=== PATIENT | male | born 1990 | race Caucasian/White ===

== ENCOUNTER 2018-08-13 14:08 | Inpatient (IN) | payer SELFPAY ==
[~2018-08-13] VITALS: Ht 172.7 cm; Wt 93.0 kg
[2018-08-13] MEDS ORDERED: SODIUM CHLORIDE 0.9% 1,000 ML IV ONE ×2 (15:03→15:15)
[2018-08-13 15:58] LABS: HEMATOCRIT. 50.3 % (42.0-52.0); HEMOGLOBIN. 16.3 g/dL (14.0-18.0); MEAN CORPUSCULAR HEMOGLOBIN 32.7 pg (28.0-32.0); MEAN CORPUSCULAR VOLUME 100.9 fL (80.0-94.0); MEAN PLATELET VOLUME 8.1 fl (7.4-10.4); PLATELET 417 x1000/uL (130-400); RED BLOOD CELL COUNT 4.99 mill/uL (4.7-6.1); RED CELL DISTRIBUTION WIDTH 12.8 % (11.6-14.6)
[2018-08-13 16:05] LABS: INR 1.1; PROTHROMBIN TIME 11.4 sec (9.1-11.1)
[2018-08-13 16:06] LABS: BG BASE EXCESS -29.8 mmol/L (-2.0-2.0); BG CARBOXYHEMOGLOBIN 0.7 % (0.5-1.5); BG DEOXYHEMOGLOBIN 1.1 % (0.0-5.0); BG FRACTION INSPIRED OXYGEN 21; BG HCO3 ACT 2.2 mmol/L (22.0-26.0); BG METHEMOGLOBIN 0.5 % (0.0-1.5); BG OXYGEN SATURATION 98.9 % (92.0-98.5); BG OXYHEMOGLOBIN 97.7 % (94.0-97.0); BG PCO2 11.8 mmHg (35.0-45.0); BG PH 6.882 (7.350-7.450); BG SAMPLE SITE LEFT BRACHIAL; BG TOTAL HEMOGLOBIN 14.9 g/dL (12.0-18.0); BG VENT MODE ROOM AIR
[2018-08-13 16:07] LABS: CHLORIDE 91 mEq/L (98-107)
[2018-08-13] MEDS ORDERED: INSULIN REGULAR (DRIP) 100 UNITS in SODIUM CHLORIDE 0.9% 100 ML IV STA (16:14)
[2018-08-13] MEDS ORDERED: SODIUM CHLORIDE 0.9% 1,000 ML IV STA (16:14)
[2018-08-13 16:15] LABS: BETA HYDROXYBUTYRATE 9.3 mMol/L (0.0-0.3)
[2018-08-13 16:18] LABS: PLATELET ESTIMATE INCREASED
[2018-08-13] MEDS ORDERED: LORAZEPAM 0.5MG TABLET PO PRN (16:45)
[2018-08-13] MEDS ORDERED: DEXTROSE 50% WATER 50ML SYRINGE IV PRN ×2 (16:45)
[2018-08-13] MEDS: BLOOD SUGAR DIAGNOSTIC STRIP TEST SCH (16:45)
[2018-08-13] MEDS ORDERED: HYDROMORPHONE HCL/PF 2MG/ML CPJ IV PRN (16:45)
[2018-08-13] MEDS ORDERED: MAGNESIUM/ALUMINUM HYDROXIDE/SIMETHICONE 30ML UDC PO PRN (16:45)
[2018-08-13] MEDS ORDERED: ONDANSETRON HCL 4MG/2ML INJ IV PRN (16:45)
[2018-08-13 17:36] LABS: PHOSPHORUS 7.6 mg/dL (2.5-4.9)
[2018-08-13 17:59] LABS: CLARITY URINE CLEAR (CLEAR); COLOR URINE YELLOW (YELLOW); KETONES URINE 3+ (NEGATIVE); LEUKOCYTE ESTERASE URINE NEGATIVE (NEGATIVE); NITRITE URINE NEGATIVE (NEGATIVE); OCCULT BLOOD URINE 1+ (NEGATIVE); PROTEIN URINE 2+ (NEGATIVE); SPECIFIC GRAVITY URINE 1.023 (1.005-1.030); UROBILINOGEN URINE 0.2 E.U./dL (0.2-1.0)
[2018-08-13 18:18] LABS: *AMPHETAMINES SCREEN URINE NEGATIVE (NEGATIVE); *BARBITURATES SCREEN URINE NEGATIVE (NEGATIVE); *BENZODIAZEPINES SCREEN URINE NEGATIVE (NEGATIVE); *COCAINE SCREEN URINE NEGATIVE (NEGATIVE); METHADONE URINE SCREEN NEGATIVE (NEGATIVE); OPIATES URINE SCREEN NEGATIVE (NEGATIVE); PHENCYCLIDINE URINE SCREEN NEGATIVE (NEGATIVE)
[2018-08-13 18:19] LABS: CANNABINOID URINE SCREEN NEGATIVE (NEGATIVE)
[2018-08-13 19:08] LABS: CHLORIDE 107 mEq/L (98-107)
[2018-08-13 20:39] LABS: CHLORIDE 110 mEq/L (98-107)
[2018-08-13 22:00] VITALS: BP 121/68
[2018-08-13] MEDS: ENOXAPARIN 40MG/0.4ML SYR SUBCUT SCH (22:00)
[2018-08-13 22:11] VITALS: BP 121/68
[2018-08-13 22:16] LABS: CHLORIDE 113 mEq/L (98-107)
[2018-08-13 22:30] VITALS: BP 117/78
[2018-08-13 23:00] VITALS: BP 109/85
[2018-08-13] MEDS: SODIUM CHLORIDE 0.9% 1,000 ML IV SCH (23:11)
[2018-08-13 23:30] VITALS: BP 116/65
[2018-08-13 23:49] LABS: HEPATITIS B SURFACE ANTIGEN NEGATIVE
[2018-08-14] VITALS (62 sets, daily range): BP systolic 85–157; BP diastolic 33–95
[2018-08-14] MEDS ORDERED: KCL 20MEQ/100ML PREMIX 100 ML IV NR
[2018-08-14] MEDS ORDERED: VANCOMYCIN 1500MG in DEXTROSE 5% WATER 250ML IV NR ×2
[2018-08-14 00:18] LABS: HEPATITIS A AB IGM NEGATIVE (NEGATIVE)
[2018-08-14] MEDS: INSULIN REGULAR (DRIP) 100 UNITS in SODIUM CHLORIDE 0.9% 100 ML IV SCH ×4 (00:34→20:49)
[2018-08-14 01:09] LABS: CHLORIDE 118 mEq/L (98-107)
[2018-08-14] MEDS: SODIUM CHLORIDE 0.9% 1,000 ML IV SCH ×2 (05:06→05:40)
[2018-08-14] MEDS ORDERED: VANCOMYCIN 1 G PREMIX 200 ML IV SCH (07:00)
[2018-08-14 07:20] LABS: HEMATOCRIT. 44.1 % (42.0-52.0); HEMOGLOBIN. 15.2 g/dL (14.0-18.0); MEAN CORPUSCULAR HEMOGLOBIN 32.4 pg (28.0-32.0); MEAN CORPUSCULAR VOLUME 93.8 fL (80.0-94.0); MEAN PLATELET VOLUME 7.8 fl (7.4-10.4); PLATELET 236 x1000/uL (130-400); RED CELL DISTRIBUTION WIDTH 12.4 % (11.6-14.6)
[2018-08-14] MEDS: BLOOD SUGAR DIAGNOSTIC STRIP TEST SCH ×16 (08:29→23:45)
[2018-08-14 08:43] LABS: CHLORIDE 122 mEq/L (98-107)
[2018-08-14 08:59] LABS: PHOSPHORUS 0.2 mg/dL (2.5-4.9)
[2018-08-14] MEDS ORDERED: SODIUM CHLORIDE 0.9% 1,000 ML IV SCH (09:06)
[2018-08-14 09:12] LABS: BG BASE EXCESS -20.8 mmol/L (-2.0-2.0); BG CARBOXYHEMOGLOBIN 0.7 % (0.5-1.5); BG DEOXYHEMOGLOBIN 0.6 % (0.0-5.0); BG FRACTION INSPIRED OXYGEN 100; BG HCO3 ACT 11.8 mmol/L (22.0-26.0); BG METHEMOGLOBIN 0.2 % (0.0-1.5); BG OXYGEN SATURATION 99.4 % (92.0-98.5); BG OXYHEMOGLOBIN 98.5 % (94.0-97.0); BG PCO2 55.7 mmHg (35.0-45.0); BG PH 6.943 (7.350-7.450); BG PO2 305.4 mmHg (75.0-100.0); BG SAMPLE SITE RIGHT RADIAL; BG TOTAL HEMOGLOBIN 14.8 g/dL (12.0-18.0); BG VENT MODE MASK - NRB
[2018-08-14] MEDS ORDERED: POTASSIUM CHLORIDE 20MEQ/PACKET PO ONE (09:15)
[2018-08-14] MEDS ORDERED: POTASSIUM CHLORIDE INJ 40 MEQ in DEXT 5% WATER 250 ML IV SCH (09:30)
[2018-08-14 09:33] LABS: HEMATOCRIT. 42.8 % (42.0-52.0); HEMOGLOBIN. 15.1 g/dL (14.0-18.0); MEAN CORPUSCULAR HEMOGLOBIN 32.5 pg (28.0-32.0); MEAN CORPUSCULAR VOLUME 92.3 fL (80.0-94.0); MEAN PLATELET VOLUME 7.5 fl (7.4-10.4); PLATELET 234 x1000/uL (130-400); RED BLOOD CELL COUNT 4.64 mill/uL (4.7-6.1); RED CELL DISTRIBUTION WIDTH 12.4 % (11.6-14.6)
[2018-08-14 09:46] LABS: PLATELET ESTIMATE NORMAL
[2018-08-14 09:55] LABS: PLATELET ESTIMATE NORMAL
[2018-08-14] MEDS ORDERED: POTASSIUM PHOS,M-BASIC-D-BASIC 20 MMOL in DEXT 5% WATER 243.3333 ML IV SCH (10:00)
[2018-08-14] MEDS: POTASSIUM CHLORIDE 20MEQ/PACKET PO SCH ×4 (12:18→20:22)
[2018-08-14] MEDS ORDERED: POTASSIUM CHLORIDE 20MEQ/PACKET PO SCH (13:00)
[2018-08-14 15:01] LABS: PHOSPHORUS 0.4 mg/dL (2.5-4.9)
[2018-08-14] MEDS: DEXT 5%/0.45% NACL 1000ML 1,000 ML IV SCH (15:56)
[2018-08-14 17:23] LABS: BG CARBOXYHEMOGLOBIN 0.8 % (0.5-1.5); BG DEOXYHEMOGLOBIN 2.4 % (0.0-5.0); BG FRACTION INSPIRED OXYGEN 30; BG HCO3 ACT 6.8 mmol/L (22.0-26.0); BG METHEMOGLOBIN 0.5 % (0.0-1.5); BG OXYGEN SATURATION 97.6 % (92.0-98.5); BG OXYHEMOGLOBIN 96.3 % (94.0-97.0); BG PCO2 24.8 mmHg (35.0-45.0); BG PH 7.059 (7.350-7.450); BG PO2 97.4 mmHg (75.0-100.0); BG SAMPLE SITE RIGHT RADIAL; BG TOTAL HEMOGLOBIN 14.4 g/dL (12.0-18.0); BG VENT MODE NASAL CANNULA
[2018-08-14] MEDS ORDERED: AMPICILLIN SOD/SULBACTAM NA 3 G in SODIUM CHLORIDE 0.9% 100 ML IV SCH (18:00)
[2018-08-14] MEDS ORDERED: SODIUM BICARBONATE 8.4% 1 MEQ/ML 50ML SYR IV NR (18:00)
[2018-08-14] MEDS: POTASSIUM PHOS,M-BASIC-D-BASIC 30 MMOL in DEXTROSE 5% WATER 1,000 ML IV SCH (18:09)
[2018-08-14] MEDS: PIPERACILLIN/TAZ 3.375G PREMIX 50 ML IV SCH (18:20)
[2018-08-14 20:54] LABS: BG BASE EXCESS -19.1 mmol/L (-2.0-2.0); BG CARBOXYHEMOGLOBIN 1.1 % (0.5-1.5); BG DEOXYHEMOGLOBIN 3.8 % (0.0-5.0); BG FRACTION INSPIRED OXYGEN 28; BG HCO3 ACT 9.9 mmol/L (22.0-26.0); BG METHEMOGLOBIN 0.6 % (0.0-1.5); BG OXYGEN SATURATION 96.1 % (92.0-98.5); BG OXYHEMOGLOBIN 94.5 % (94.0-97.0); BG PCO2 34.2 mmHg (35.0-45.0); BG PH 7.081 (7.350-7.450); BG PO2 79.4 mmHg (75.0-100.0); BG SAMPLE SITE RIGHT BRACHIAL; BG TOTAL HEMOGLOBIN 14.2 g/dL (12.0-18.0); BG VENT MODE NASAL CANNULA
[2018-08-14] MEDS ORDERED: SODIUM BICARBONATE 8.4% 1 MEQ/ML 50ML SYR IV SCH ×2 (22:00→23:07)
[2018-08-14] MEDS ORDERED: PROPOFOL 10MG/ML 100ML 100 ML IV PRN (22:15)
[2018-08-14] MEDS ORDERED: SODIUM BICARBONATE 8.4% 1 MEQ/ML 50ML SYR IV ONE (22:18)
[2018-08-14] MEDS ORDERED: KCL 20MEQ/100ML PREMIX 100 ML IV ONE (22:45)
[2018-08-14] MEDS ORDERED: PHENYLEPHRINE 40 MG in DEXT 5% WATER 246 ML IV PRN (23:00)
[2018-08-14] MEDS: ENOXAPARIN 40MG/0.4ML SYR SUBCUT SCH (23:14)
[2018-08-14] MEDS: POTASSIUM CHLORIDE INJ 40 MEQ in DEXT 5% WATER 250 ML IV SCH (23:30)
[2018-08-14] MEDS: LACTULOSE 20G/30ML UDC PO SCH (23:56)
[2018-08-15] VITALS (52 sets, daily range): BP systolic 125–181; BP diastolic 68–159
[2018-08-15] MEDS: PIPERACILLIN/TAZ 3.375G PREMIX 50 ML IV SCH ×3 (00:16→12:27)
[2018-08-15] MEDS: BLOOD SUGAR DIAGNOSTIC STRIP TEST SCH ×21 (00:45→23:28)
[2018-08-15] MEDS: DEXT 5%/0.45% NACL 1000ML 1,000 ML IV SCH ×4 (02:11→23:28)
[2018-08-15] MEDS: POTASSIUM CHLORIDE INJ 40 MEQ in DEXT 5% WATER 250 ML IV SCH ×2 (03:17→08:07)
[2018-08-15] MEDS: INSULIN REGULAR (DRIP) 100 UNITS in SODIUM CHLORIDE 0.9% 100 ML IV SCH ×3 (03:57→23:33)
[2018-08-15 05:24] LABS: BG BASE EXCESS -12.7 mmol/L (-2.0-2.0); BG CARBOXYHEMOGLOBIN 0.8 % (0.5-1.5); BG DEOXYHEMOGLOBIN 2.9 % (0.0-5.0); BG FRACTION INSPIRED OXYGEN 28; BG HCO3 ACT 12.5 mmol/L (22.0-26.0); BG METHEMOGLOBIN 0.5 % (0.0-1.5); BG OXYGEN SATURATION 97.1 % (92.0-98.5); BG OXYHEMOGLOBIN 95.8 % (94.0-97.0); BG PCO2 27.2 mmHg (35.0-45.0); BG PO2 77.6 mmHg (75.0-100.0); BG SAMPLE SITE RIGHT RADIAL; BG TOTAL HEMOGLOBIN 12.7 g/dL (12.0-18.0); BG VENT MODE NASAL CANNULA
[2018-08-15] MEDS: LACTULOSE 20G/30ML UDC PO SCH ×3 (05:26→21:55)
[2018-08-15 06:52] LABS: HEMOGLOBIN. 12.7 g/dL (14.0-18.0); MEAN CORPUSCULAR HEMOGLOBIN 32.1 pg (28.0-32.0); MEAN CORPUSCULAR VOLUME 91.2 fL (80.0-94.0); MEAN PLATELET VOLUME 7.7 fl (7.4-10.4); PLATELET 148 x1000/uL (130-400); RED BLOOD CELL COUNT 3.95 mill/uL (4.7-6.1); RED CELL DISTRIBUTION WIDTH 12.6 % (11.6-14.6)
[2018-08-15 07:32] LABS: PLATELET ESTIMATE NORMAL
[2018-08-15] MEDS: POTASSIUM BICARB/CIT ACID 25 MEQ TABLET.EFF PO SCH ×3 (09:54→17:09)
[2018-08-15] MEDS ORDERED: DEXT 5%/0.45% NACL KCL 40MEQ/L 1,000 ML IV SCH (10:00)
[2018-08-15] MEDS ORDERED: LORAZEPAM 2MG/ML CPJ IV PRN (10:00)
[2018-08-15] MEDS ORDERED: POTASSIUM CHLORIDE 20MEQ TABLET SR PO NR (10:30)
[2018-08-15 12:01] LABS: PHOSPHORUS 0.1 mg/dL (2.5-4.9)
[2018-08-15] MEDS: POTASSIUM PHOS,M-BASIC-D-BASIC 30 MMOL in DEXTROSE 5% WATER 1,000 ML IV SCH (13:27)
[2018-08-15] MEDS: CHLORDIAZEPOXIDE 5 MG CAPSULE PO SCH ×2 (14:09→21:55)
[2018-08-15] MEDS: POTASSIUM PHOS,M-BASIC-D-BASIC 20 MMOL in DEXT 5% WATER 243.3333 ML IV SCH ×3 (15:13→23:33)
[2018-08-15] MEDS: PANTOPRAZOLE SODIUM 40 MG/VIAL IV SCH (17:09)
[2018-08-15] MEDS: POTASSIUM-SODIUM PHOSPHATE POWDER PACKET PO SCH (17:10)
[2018-08-15] MEDS: PIPERACILLIN/TAZ 2.25G PREMIX 50 ML IV SCH ×2 (17:10→23:43)
[2018-08-15] MEDS: ENOXAPARIN 40MG/0.4ML SYR SUBCUT SCH (21:55)
[2018-08-16] VITALS (42 sets, daily range): BP systolic 130–172; BP diastolic 85–137
[2018-08-16] MEDS: BLOOD SUGAR DIAGNOSTIC STRIP TEST SCH ×7 (00:16→17:00)
[2018-08-16] MEDS: LACTULOSE 20G/30ML UDC PO SCH ×3 (06:13→21:26)
[2018-08-16] MEDS: PIPERACILLIN/TAZ 2.25G PREMIX 50 ML IV SCH ×3 (06:13→21:27)
[2018-08-16] MEDS: CHLORDIAZEPOXIDE 5 MG CAPSULE PO SCH ×3 (06:13→21:27)
[2018-08-16 06:27] LABS: CHLORIDE 124 mEq/L (98-107)
[2018-08-16 06:38] LABS: CREATINE KINASE 72 IU/L (39-308)
[2018-08-16] MEDS ORDERED: SODIUM CHLORIDE 0.9% 1,000 ML IV SCH (08:45)
[2018-08-16] MEDS ORDERED: SPIRONOLACTONE 25MG TABLET PO SCH (09:00)
[2018-08-16] MEDS: POTASSIUM-SODIUM PHOSPHATE POWDER PACKET PO SCH ×2 (09:02→17:05)
[2018-08-16] MEDS: PANTOPRAZOLE SODIUM 40 MG/VIAL IV SCH (09:02)
[2018-08-16] MEDS: POTASSIUM BICARB/CIT ACID 25 MEQ TABLET.EFF PO SCH ×3 (09:02→17:05)
[2018-08-16] MEDS: INSULIN REGULAR (DRIP) 100 UNITS in SODIUM CHLORIDE 0.9% 100 ML IV SCH (09:04)
[2018-08-16 09:08] LABS: COMPLEMENT C3 169 mg/dL (82-167)
[2018-08-16 09:24] LABS: BASOPHILS % 0.3 % (0.0-2.0); EOSINOPHILS % 0.2 % (0.0-5.0); HEMATOCRIT. 32.8 % (42.0-52.0); HEMOGLOBIN. 11.8 g/dL (14.0-18.0); LYMPHOCYTES % 13.7 % (20.0-50.0); MEAN CORPUSCULAR HEMOGLOBIN 32.6 pg (28.0-32.0); MEAN CORPUSCULAR VOLUME 90.9 fL (80.0-94.0); MEAN PLATELET VOLUME 8.2 fl (7.4-10.4); MONOCYTES % 10.5 % (2.0-8.0); NEUTROPHILS % 75.3 % (40.0-76.0); PLATELET 158 x1000/uL (130-400); RED BLOOD CELL COUNT 3.61 mill/uL (4.7-6.1)
[2018-08-16 09:39] LABS: BG BASE EXCESS -11.9 mmol/L (-2.0-2.0); BG CARBOXYHEMOGLOBIN 0.5 % (0.5-1.5); BG FRACTION INSPIRED OXYGEN 28; BG HCO3 ACT 10.5 mmol/L (22.0-26.0); BG METHEMOGLOBIN 0.3 % (0.0-1.5); BG OXYHEMOGLOBIN 97.2 % (94.0-97.0); BG PCO2 17.3 mmHg (35.0-45.0); BG PH 7.399 (7.350-7.450); BG PO2 103.2 mmHg (75.0-100.0); BG SAMPLE SITE RIGHT RADIAL; BG TOTAL HEMOGLOBIN 12.5 g/dL (12.0-18.0); BG VENT MODE NASAL CANNULA
[2018-08-16 09:54] LABS: PHOSPHORUS 1.4 mg/dL (2.5-4.9)
[2018-08-16] MEDS: POTASSIUM PHOS,M-BASIC-D-BASIC 30 MMOL in DEXTROSE 5% WATER 1,000 ML IV SCH (11:08)
[2018-08-16] MEDS: CLONIDINE 0.1MG TABLET PO PRN (11:08)
[2018-08-16] MEDS ORDERED: DEXTROSE 50% WATER 50ML SYRINGE IV PRN (12:45)
[2018-08-16 12:47] LABS: CHLORIDE 126 mEq/L (98-107)
[2018-08-16] MEDS: INSULIN LISPRO 100 UNITS/ML SUBCUT SCH (17:05)
[2018-08-16 19:46] LABS: CHLORIDE 121 mEq/L (98-107)
[2018-08-16 19:51] LABS: PHOSPHORUS 2.7 mg/dL (2.5-4.9)
[2018-08-16] MEDS: ENOXAPARIN 40MG/0.4ML SYR SUBCUT SCH (21:27)
[2018-08-16] MEDS ORDERED: INSULIN GLARGINE UD 100 UNITS/ML SYR SUBCUT SCH (23:30)
[2018-08-17] VITALS (41 sets, daily range): BP systolic 129–168; BP diastolic 23–115
[2018-08-17] MEDS: PIPERACILLIN/TAZ 2.25G PREMIX 50 ML IV SCH ×5 (00:22→23:50)
[2018-08-17] MEDS: BLOOD SUGAR DIAGNOSTIC STRIP TEST SCH ×5 (00:23→21:32)
[2018-08-17] MEDS: INSULIN LISPRO 100 UNITS/ML SUBCUT SCH ×7 (00:23→21:32)
[2018-08-17 00:56] LABS: CHLORIDE 116 mEq/L (98-107)
[2018-08-17] MEDS: CLONIDINE 0.1MG TABLET PO PRN ×3 (03:48→23:50)
[2018-08-17] MEDS: CHLORDIAZEPOXIDE 5 MG CAPSULE PO SCH ×2 (06:17→12:52)
[2018-08-17 06:40] LABS: BASOPHILS % 0.4 % (0.0-2.0); EOSINOPHILS % 0.4 % (0.0-5.0); HEMATOCRIT. 34.8 % (42.0-52.0); HEMOGLOBIN. 12.2 g/dL (14.0-18.0); LYMPHOCYTES % 14.9 % (20.0-50.0); MEAN CORPUSCULAR HEMOGLOBIN 31.8 pg (28.0-32.0); MEAN CORPUSCULAR VOLUME 90.9 fL (80.0-94.0); MEAN PLATELET VOLUME 8.3 fl (7.4-10.4); MONOCYTES % 9.7 % (2.0-8.0); NEUTROPHILS % 74.6 % (40.0-76.0); PLATELET 170 x1000/uL (130-400); RED BLOOD CELL COUNT 3.83 mill/uL (4.7-6.1); RED CELL DISTRIBUTION WIDTH 13.1 % (11.6-14.6)
[2018-08-17] MEDS: SODIUM CHLORIDE 0.9% 1,000 ML IV SCH (08:26)
[2018-08-17] MEDS: SODIUM BICARBONATE 650 MG TABLET PO SCH ×3 (08:26→17:14)
[2018-08-17] MEDS: SPIRONOLACTONE 25MG TABLET PO SCH ×2 (08:27→17:15)
[2018-08-17] MEDS: PANTOPRAZOLE SODIUM 40 MG/VIAL IV SCH (08:27)
[2018-08-17] MEDS: INSULIN GLARGINE UD 100 UNITS/ML SYR SUBCUT SCH ×3 (09:00→21:31)
[2018-08-17] MEDS ORDERED: AMLODIPINE 5MG TABLET PO SCH (09:00)
[2018-08-17 09:31] LABS: INR 1.1; PROTHROMBIN TIME 11.4 sec (9.1-11.1)
[2018-08-17 09:41] LABS: AMYLASE 387 IU/L (25-115)
[2018-08-17] MEDS ORDERED: INSULIN LISPRO 100 UNITS/ML SUBCUT NR (12:05)
[2018-08-17] MEDS: HYDRALAZINE HCL 25MG TABLET PO SCH ×2 (14:28→21:30)
[2018-08-17] MEDS: AMLODIPINE 5MG TABLET PO SCH (21:29)
[2018-08-17] MEDS: ENOXAPARIN 40MG/0.4ML SYR SUBCUT SCH (21:30)
[2018-08-18] VITALS (40 sets, daily range): BP systolic 62–167; BP diastolic 12–114
[2018-08-18] MEDS: PIPERACILLIN/TAZ 2.25G PREMIX 50 ML IV SCH ×4 (06:06→23:35)
[2018-08-18] MEDS: SODIUM CHLORIDE 0.9% 1,000 ML IV SCH ×2 (06:07→23:36)
[2018-08-18] MEDS: HYDRALAZINE HCL 25MG TABLET PO SCH ×3 (06:07→22:52)
[2018-08-18 06:20] LABS: BASOPHILS % 0.1 % (0.0-2.0); EOSINOPHILS % 1.6 % (0.0-5.0); HEMATOCRIT. 35.5 % (42.0-52.0); HEMOGLOBIN. 12.3 g/dL (14.0-18.0); MEAN CORPUSCULAR HEMOGLOBIN 31.9 pg (28.0-32.0); MEAN PLATELET VOLUME 7.9 fl (7.4-10.4); MONOCYTES % 13.3 % (2.0-8.0); PLATELET 185 x1000/uL (130-400); RED BLOOD CELL COUNT 3.86 mill/uL (4.7-6.1); RED CELL DISTRIBUTION WIDTH 12.9 % (11.6-14.6)
[2018-08-18] MEDS: BLOOD SUGAR DIAGNOSTIC STRIP TEST SCH ×4 (07:50→21:19)
[2018-08-18] MEDS: SODIUM BICARBONATE 650 MG TABLET PO SCH ×3 (08:10→17:52)
[2018-08-18] MEDS: AMLODIPINE 5MG TABLET PO SCH ×2 (08:11→21:19)
[2018-08-18] MEDS: SPIRONOLACTONE 25MG TABLET PO SCH ×2 (08:11→17:53)
[2018-08-18] MEDS: PANTOPRAZOLE SODIUM 40 MG/VIAL IV SCH (08:12)
[2018-08-18] MEDS: INSULIN LISPRO 100 UNITS/ML SUBCUT SCH ×7 (08:13→21:20)
[2018-08-18] MEDS ORDERED: CHLORDIAZEPOXIDE 5 MG CAPSULE PO SCH ×2 (09:00)
[2018-08-18] MEDS: INSULIN GLARGINE UD 100 UNITS/ML SYR SUBCUT SCH ×2 (10:24→23:34)
[2018-08-18] MEDS: ENOXAPARIN 40MG/0.4ML SYR SUBCUT SCH (22:51)
[2018-08-19] VITALS (11 sets, daily range): BP systolic 110–153; BP diastolic 55–90
[2018-08-19] MEDS ORDERED: ZOLPIDEM TARTRATE 5MG TABLET PO PRN ×2 (04:30→04:45)
[2018-08-19] MEDS ORDERED: MORPHINE SULFATE 4 MG/ML CPJ (NOT FOR IM USE) IV PRN (04:30)
[2018-08-19] MEDS: MORPHINE SULFATE 4 MG/ML CPJ (NOT FOR IM USE) IV PRN ×2 (05:34→20:15)
[2018-08-19] MEDS: PIPERACILLIN/TAZ 2.25G PREMIX 50 ML IV SCH ×2 (05:34→12:38)
[2018-08-19] MEDS: HYDRALAZINE HCL 25MG TABLET PO SCH ×3 (05:35→21:31)
[2018-08-19] MEDS: BLOOD SUGAR DIAGNOSTIC STRIP TEST SCH ×4 (07:30→21:31)
[2018-08-19 07:38] LABS: HEMATOCRIT. 31.1 % (42.0-52.0); HEMOGLOBIN. 11.1 g/dL (14.0-18.0); MEAN CORPUSCULAR HEMOGLOBIN 32.8 pg (28.0-32.0); MEAN CORPUSCULAR VOLUME 92.2 fL (80.0-94.0); MEAN PLATELET VOLUME 7.7 fl (7.4-10.4); PLATELET 195 x1000/uL (130-400); RED BLOOD CELL COUNT 3.37 mill/uL (4.7-6.1); RED CELL DISTRIBUTION WIDTH 12.9 % (11.6-14.6)
[2018-08-19 08:18] LABS: HIV SCREEN 4G Non Reactive (Non Reactive)
[2018-08-19] MEDS ORDERED: DIATR MEGLU/DIATRIZOATE SOLN 30ML PO NR (08:30)
[2018-08-19] MEDS: INSULIN LISPRO 100 UNITS/ML SUBCUT SCH ×7 (09:02→21:00)
[2018-08-19] MEDS: SODIUM BICARBONATE 650 MG TABLET PO SCH ×3 (09:03→17:10)
[2018-08-19] MEDS: AMLODIPINE 5MG TABLET PO SCH ×2 (09:04→21:31)
[2018-08-19] MEDS: SPIRONOLACTONE 25MG TABLET PO SCH ×2 (09:04→17:13)
[2018-08-19] MEDS: PANTOPRAZOLE SODIUM 40 MG/VIAL IV SCH (09:05)
[2018-08-19] MEDS: INSULIN GLARGINE UD 100 UNITS/ML SYR SUBCUT SCH ×2 (10:34→21:44)
[2018-08-19 11:37] LABS: PLATELET ESTIMATE NORMAL
[2018-08-19 13:29] LABS: INR 1.1
[2018-08-19 13:37] LABS: AMYLASE 322 IU/L (25-115)
[2018-08-19] MEDS: SODIUM CHLORIDE 0.9% 1,000 ML IV SCH (14:16)
[2018-08-19 14:18] LABS: ANA IFA Negative (.)
[2018-08-19] MEDS: POTASSIUM CHLORIDE 20MEQ TABLET SR PO SCH (16:06)
[2018-08-19 18:10] LABS: CLARITY URINE CLEAR (CLEAR); COLOR URINE YELLOW (YELLOW); KETONES URINE NEGATIVE (NEGATIVE); LEUKOCYTE ESTERASE URINE NEGATIVE (NEGATIVE); NITRITE URINE NEGATIVE (NEGATIVE); OCCULT BLOOD URINE 3+ (NEGATIVE); PROTEIN URINE TRACE (NEGATIVE); SPECIFIC GRAVITY URINE 1.005 (1.005-1.030); UROBILINOGEN URINE 0.2 E.U./dL (0.2-1.0)
[2018-08-19] MEDS: ENOXAPARIN 40MG/0.4ML SYR SUBCUT SCH (21:37)
[2018-08-20] VITALS (10 sets, daily range): BP systolic 122–156; BP diastolic 76–89
[2018-08-20] MEDS: SODIUM CHLORIDE 0.9% 1,000 ML IV SCH ×2 (02:34→10:58)
[2018-08-20] MEDS: HYDRALAZINE HCL 25MG TABLET PO SCH ×3 (06:07→21:36)
[2018-08-20 06:33] LABS: HEMATOCRIT. 32.4 % (42.0-52.0); HEMOGLOBIN. 11.5 g/dL (14.0-18.0); MEAN CORPUSCULAR HEMOGLOBIN 32.8 pg (28.0-32.0); MEAN CORPUSCULAR VOLUME 92.7 fL (80.0-94.0); MEAN PLATELET VOLUME 7.5 fl (7.4-10.4); PLATELET 235 x1000/uL (130-400); RED CELL DISTRIBUTION WIDTH 12.5 % (11.6-14.6)
[2018-08-20] MEDS: INSULIN LISPRO 100 UNITS/ML SUBCUT SCH ×7 (07:30→21:05)
[2018-08-20] MEDS: BLOOD SUGAR DIAGNOSTIC STRIP TEST SCH ×4 (07:43→20:26)
[2018-08-20 08:33] LABS: CHLORIDE 117 mEq/L (98-107)
[2018-08-20] MEDS: SODIUM BICARBONATE 650 MG TABLET PO SCH ×3 (08:34→17:40)
[2018-08-20] MEDS: PANTOPRAZOLE SODIUM 40 MG/VIAL IV SCH (08:34)
[2018-08-20] MEDS: AMLODIPINE 5MG TABLET PO SCH ×2 (08:34→21:03)
[2018-08-20] MEDS: SPIRONOLACTONE 25MG TABLET PO SCH ×2 (08:34→17:40)
[2018-08-20 08:48] LABS: PHOSPHORUS 5.4 mg/dL (2.5-4.9)
[2018-08-20] MEDS ORDERED: MAGNESIUM/ALUMINUM HYDROXIDE/SIMETHICONE 30ML UDC PO PRN (09:30)
[2018-08-20] MEDS: POTASSIUM CHLORIDE 20MEQ TABLET SR PO SCH (09:50)
[2018-08-20] MEDS: INSULIN GLARGINE UD 100 UNITS/ML SYR SUBCUT SCH ×2 (09:50→21:45)
[2018-08-20] MEDS: HYDROCODONE/ACETAMINOPHEN 5/325MG TABLET PO PRN ×2 (09:51→23:32)
[2018-08-20 13:11] LABS: ANTI-DNA DOUBLE STRANDED QUANT 1 IU/mL (0-9); ANTI-NUCLEAR ANTIBODIES DIRECT Negative (Negative)
[2018-08-20 13:20] LABS: ATYPICAL LYMPHOCYTES 2; PLATELET ESTIMATE NORMAL
[2018-08-20 15:06] LABS: ANTI-MYELOPEROXIDASE AB < 9.0 U/mL (0.0-9.0); ANTI-PROTEINASE 3 ABS < 3.5 U/mL (0.0-3.5)
[2018-08-20] MEDS ORDERED: ENOXAPARIN 30MG/0.3ML SYR SUBCUT SCH (21:00)
[2018-08-20] MEDS: ENOXAPARIN 40MG/0.4ML SYR SUBCUT SCH (21:04)
[2018-08-21] VITALS: BP 109/65
[2018-08-21 04:00] VITALS: BP 133/85
[2018-08-21] MEDS: INSULIN LISPRO 100 UNITS/ML SUBCUT SCH ×7 (06:30→21:16)
[2018-08-21] MEDS: BLOOD SUGAR DIAGNOSTIC STRIP TEST SCH ×4 (06:30→21:17)
[2018-08-21] MEDS: HYDRALAZINE HCL 25MG TABLET PO SCH ×3 (06:40→21:17)
[2018-08-21 08:00] VITALS: BP 120/72
[2018-08-21] MEDS: POTASSIUM CHLORIDE 20MEQ TABLET SR PO SCH (08:37)
[2018-08-21] MEDS: SODIUM BICARBONATE 650 MG TABLET PO SCH ×3 (08:37→17:12)
[2018-08-21] MEDS: HYDROCODONE/ACETAMINOPHEN 5/325MG TABLET PO PRN ×2 (08:38→22:15)
[2018-08-21] MEDS: AMLODIPINE 5MG TABLET PO SCH ×2 (08:38→21:17)
[2018-08-21] MEDS: SPIRONOLACTONE 25MG TABLET PO SCH ×2 (08:39→17:12)
[2018-08-21 08:47] LABS: HEMATOCRIT. 32.1 % (42.0-52.0); HEMOGLOBIN. 11.5 g/dL (14.0-18.0); MEAN CORPUSCULAR HEMOGLOBIN 32.9 pg (28.0-32.0); MEAN CORPUSCULAR VOLUME 91.9 fL (80.0-94.0); MEAN PLATELET VOLUME 7.4 fl (7.4-10.4); PLATELET 240 x1000/uL (130-400); RED BLOOD CELL COUNT 3.49 mill/uL (4.7-6.1); RED CELL DISTRIBUTION WIDTH 12.7 % (11.6-14.6)
[2018-08-21 08:58] LABS: PHOSPHORUS 5.7 mg/dL (2.5-4.9)
[2018-08-21] MEDS ORDERED: FAMOTIDINE 20MG TABLET PO SCH (09:00)
[2018-08-21 09:06] LABS: ANTI-CARDIOLIPIN AB IGA < 9 APL U/mL (0-11)
[2018-08-21] MEDS: INSULIN GLARGINE UD 100 UNITS/ML SYR SUBCUT SCH ×2 (10:44→21:16)
[2018-08-21 12:00] VITALS: BP 134/86
[2018-08-21 12:27] LABS: PLATELET ESTIMATE NORMAL
[2018-08-21] MEDS ORDERED: DEXTROSE 50% WATER 50ML SYRINGE IV PRN ×2 (12:30→12:45)
[2018-08-21] MEDS ORDERED: BLOOD SUGAR DIAGNOSTIC STRIP TEST SCH (12:30)
[2018-08-21] MEDS ORDERED: INSULIN LISPRO 100 UNITS/ML SUBCUT SCH (12:40)
[2018-08-21 16:00] VITALS: BP 134/92
[2018-08-21 20:00] VITALS: BP 140/85
[2018-08-21] MEDS: ENOXAPARIN 40MG/0.4ML SYR SUBCUT SCH (21:17)
[2018-08-22] VITALS: BP 126/77
[2018-08-22 04:00] VITALS: BP 146/99
[2018-08-22] MEDS: HYDRALAZINE HCL 25MG TABLET PO SCH ×2 (05:45→14:00)
[2018-08-22] MEDS: BLOOD SUGAR DIAGNOSTIC STRIP TEST SCH ×3 (06:41→16:36)
[2018-08-22] MEDS: INSULIN LISPRO 100 UNITS/ML SUBCUT SCH ×6 (06:41→16:36)
[2018-08-22 07:24] LABS: BASOPHILS % 0.8 % (0.0-2.0); EOSINOPHILS % 3.4 % (0.0-5.0); HEMATOCRIT. 31.1 % (42.0-52.0); HEMOGLOBIN. 11.1 g/dL (14.0-18.0); LYMPHOCYTES % 31.7 % (20.0-50.0); MEAN CORPUSCULAR VOLUME 91.9 fL (80.0-94.0); MEAN PLATELET VOLUME 7.5 fl (7.4-10.4); MONOCYTES % 11.2 % (2.0-8.0); NEUTROPHILS % 52.9 % (40.0-76.0); PLATELET 267 x1000/uL (130-400); RED BLOOD CELL COUNT 3.38 mill/uL (4.7-6.1); RED CELL DISTRIBUTION WIDTH 12.4 % (11.6-14.6)
[2018-08-22 07:53] LABS: PHOSPHORUS 5.8 mg/dL (2.5-4.9)
[2018-08-22 08:00] VITALS: BP 135/84
[2018-08-22] MEDS: POTASSIUM CHLORIDE 20MEQ TABLET SR PO SCH (09:20)
[2018-08-22] MEDS: SPIRONOLACTONE 25MG TABLET PO SCH (09:21)
[2018-08-22] MEDS: AMLODIPINE 5MG TABLET PO SCH (09:22)
[2018-08-22] MEDS: INSULIN GLARGINE UD 100 UNITS/ML SYR SUBCUT SCH (10:17)
[2018-08-22 12:00] VITALS: BP 144/97
[2018-08-22 14:22] LABS: ATYPICAL P-ANCA <1:20 titer (Neg:<1:20); CYTOPLASMIC C-ANCA <1:20 titer (Neg:<1:20); PERINUCLEAR P-ANCA <1:20 titer (Neg:<1:20)
[2018-08-22 14:29] VITALS: BP 144/97
[2018-08-22 16:00] VITALS: BP 129/76
== END 2018-08-22 16:59 | disposition home or self-care (01) | DRG 720 ==
LOC: ER 14:08 → EDBEDREQ 15:11 → EDBEDREQSVC 15:11 → SUPCPDRO 16:35 → CVICU 16:41 → EDBEDREQ 16:42 → EDBEDREQTM 16:42 → ENRESERV 21:21 → 5EST 08-18 22:00 → 8WST 08-20 11:05
PROVIDERS: ADMIT Internal Medicine Nephrology; ATTEND Internal Medicine Nephrology
PROC: 02HV33Z Insertion of Infusion Device into Superior Vena Cava, Percutaneous Approach (ICD-10-PCS; principal; 2018-08-14)
PROC: B548ZZA Ultrasonography of Superior Vena Cava, Guidance (ICD-10-PCS; 2018-08-14)
DX: A41.9 Sepsis, unspecified organism (principal); J96.00 Acute respiratory failure, unspecified whether with hypoxia or hypercapnia; N17.0 Acute kidney failure with tubular necrosis; E43 Unspecified severe protein-calorie malnutrition; G93.40 Encephalopathy, unspecified; E11.10 Type 2 diabetes mellitus with ketoacidosis without coma; E72.20 Disorder of urea cycle metabolism, unspecified; J18.9 Pneumonia, unspecified organism; I50.21 Acute systolic (congestive) heart failure; K85.90 Acute pancreatitis without necrosis or infection, unspecified; E66.9 Obesity, unspecified; E83.39 Other disorders of phosphorus metabolism; E83.41 Hypermagnesemia; E86.0 Dehydration; E87.1 Hypo-osmolality and hyponatremia; E87.6 Hypokalemia; F10.20 Alcohol dependence, uncomplicated; E87.8 Other disorders of electrolyte and fluid balance, not elsewhere classified; I11.0 Hypertensive heart disease with heart failure; K76.0 Fatty (change of) liver, not elsewhere classified; Z68.31 Body mass index [BMI] 31.0-31.9, adult; Z79.4 Long term (current) use of insulin; Z79.899 Other long term (current) drug therapy; Z83.3 Family history of diabetes mellitus
CPT/HCPCS: 36415; 36569; 36600; 71045; 74176; 76705; 76770; 76857; 76937; 80048; 80076; 80202; 80305; 80320; 82010; 82088; 82140; 82150; 82375; 82533; 82550; 82570; 82575; 82805; 82962; 83036; 83520; 83605; 83735; 83930; 83935; 84100; 84133; 84244; 84484; 84550; 86038; 86140; 86147; 86160; 86225; 86235; 86256; 86705; 86709; 86803; 87340; 87389; 93005; 93306; 96365; 97116; 97162; 97530; 99285; C1725; C1769; C9113; G0482; J0295; J1170; J1650; J1815; J2060; J2270; J2405; J2543; J2704; J3370; J3480; J3490; J7030; J7050; J7060; J7070